=== PATIENT | male | born 1970 | race Caucasian/White ===

== ENCOUNTER 2016-05-31 00:17 | Emergency (ER) | payer OTHER ==
[2016-05-31 01:20] LABS: BASO % 0.3 % (0.0-1.0); EOS # 0.2 K/mm3 (0.0-0.50); EOS % 2.1 % (0.0-3.0); LARGE UNSTAINED CELL # 0.2 K/mm3 (0.0-0.4); LARGE UNSTAINED CELL % 2.6 % (0.0-4.0); LYMPH % 27.1 % (24.0-44.0); MEAN CORPUSCULAR HEMOGLOBIN 27.3 pg (27.0-33.0); MEAN CORPUSCULAR HGB CONC 32.4 g/dl (32.0-36.5); MEAN CORPUSCULAR VOLUME 84.4 fl (80.0-96.0); MONO # 0.4 K/mm3 (0.0-0.8); MONO % 5.7 % (0.0-5.0); NEUTROPHILS # 4.6 K/mm3 (1.8-7.7); NEUTROPHILS % 62.2 % (36.0-66.0); PLATELET COUNT, AUTOMATED 183 k/mm3 (150-450); RED CELL DISTRIBUTION WIDTH 14.6 % (11.5-14.5); WHITE BLOOD COUNT 7.4 K/mm3 (4.0-10.0)
[2016-05-31 02:04] LABS: ALBUMIN 4.2 GM/DL (3.2-5.2); ALBUMIN/GLOBULIN RATIO 1.27 (1.00-1.93); ALKALINE PHOSPHATASE 77 U/L (45-117); ALT/SGPT 31 U/L (12-78); AMYLASE 47 U/L (25-115); ANION GAP 9 MEQ/L (8-16); AST/SGOT 16 U/L (15-37); BILIRUBIN,DIRECT < 0.1 MG/DL (0.0-0.2); BILIRUBIN,TOTAL 0.2 MG/DL (0.2-1.0); BLOOD UREA NITROGEN 11 MG/DL (7-18); CALCIUM LEVEL 8.8 MG/DL (8.5-10.1); CARBON DIOXIDE LEVEL 27 MEQ/L (21-32); CHLORIDE LEVEL 105 MEQ/L (98-107); CREATININE FOR GFR 1.11 MG/DL (0.70-1.30); GLOMERULAR FILTRATION RATE > 60.0 (>60); GLUCOSE, FASTING 166 MG/DL (70-105); POTASSIUM SERUM 4.1 MEQ/L (3.5-5.1); SODIUM LEVEL 141 MEQ/L (136-145); TOTAL PROTEIN 7.5 GM/DL (6.4-8.2)
[2016-05-31] MEDS ORDERED: GASTROGRAFIN SOLUTION 30ML (Q9963) As Ordered ONE (02:07)
[2016-05-31] MEDS ORDERED: ISOVUE-370 76% 100ML VIAL (Q9967) As Ordered ONE (02:26)
[2016-05-31] MEDS ORDERED: DICYCLOMINE INJ 20MG/2ML (J0500) As Ordered ONE (02:35)
--- NOTE | 2016-05-31 03:11 | EDDOCDS ---
Nurse's Notes [facility] Name: Lul Morocho Age: 46 yrs Sex: Male : 1970 Arrival Date: 05/31/2016 Time: 00:17 Bed D1 Private MD: Diagnosis: Abdominal and pelvic pain Presentation: 05/31 00:45 Presenting complaint: Patient states: Severe lower abdominal pain bilaterally. Has a jo3 history of ulcerative colitis. does not think he saw blood in stool. Adult Sepsis Screening: The patient does not have new or worsening altered mentation. Patient's respiratory rate is less than 22. Systolic blood pressure is greater than 100. Patient has a qSOFA score of 0- Negative Sepsis Screen. Suicide/Homicide risk assessment- the patient denies having any suicidal and/or homicidal ideations and does not present with any other emotional, behavioral or mental health complaints. 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 Transition of care: patient was not received from another setting of care. 00:45 Acuity: PEMA Level 3 jo3 00:45 Method Of Arrival: Walkin/Carried/Asstd jo3 Triage Assessment: 00:47 General: Appears in no apparent distress, uncomfortable, well nourished, well groomed, jo3 Behavior is appropriate for age, cooperative. Pain: Pain currently is 9 out of 10 on a pain scale. HIV screening NA for this visit Offered previously. Neurological: Level of Consciousness is awake, alert, Oriented to person, place, time. Respiratory: Airway is patent Respiratory effort is even, unlabored. GI: Reports diarrhea, nausea, vomiting. Derm: Skin is pink, warm & dry. Historical: - Allergies: Aspirin; NSAIDS (Hives); - Home Meds: 1. none - PMHx: Ulcerative Colitis; - PSHx: Appendectomy; C6-7 spinal fusion; - Social history: Smoking status: Patient uses tobacco products, heavy tobacco smoker. No barriers to communication noted, The patient speaks fluent Italian, Speaks appropriately for age. - Family history: Not pertinent. - : The pt / caregiver states he / she is not on anticoagulants. Home medication list is obtained from the patient. - Exposure Risk Screening:: None identified. Screenin:30 Screening information is obtained from the patient. Fall risk: No risks identified. kmg1 Assistance ADL's: requires no assistance with activities of daily living. Abuse/DV Screen: The patient / caregiver reports he/she is: not in a situation that causes fear, pain or injury. Nutritional screening: No deficits noted. Advance Directives: There is no active DNR order. home support is adequate. Assessment: 01:14 General: Appears in no apparent distress, uncomfortable, Behavior is cooperative. Pain: slm Location: abdomen. Derm: Skin is pink, warm & dry. 02:10 General: Appears in no apparent distress, uncomfortable, Behavior is appropriate for km age, cooperative. Pain: Location: abdomen diffusely. GI: Bowel sounds present X 4 quads. Abd is soft X 4 quads Abd is tender to palpation X 4 quads. Reports lower abdominal pain, upper abdominal pain. 02:41 General: Appears in no apparent distress, Behavior is appropriate for age, cooperative, jmb Patient laying on stretcher, appears uncomfortable. watching television. NO voiced complaints at this time. . Neurological: Level of Consciousness is awake, alert, obeys commands, Oriented to person, place, time, Speech is normal. Respiratory: Airway is patent Respiratory effort is even, unlabored, Respiratory pattern is regular, symmetrical. 03:00 General: Patient removed his own IV and left the department. [facility] [place] Vital Signs: 00:47 BP 131 / 89; Pulse 94; Resp 20; Temp 98.1(O); Pulse Ox 99% ; Weight 81.65 kg; Height 5 jo3 ft. 5 in. (165.10 cm); Pain 9/10; 00:47 Body Mass Index 29.95 (81.65 kg, 165.10 cm) [facility] Vitals: 00:47 Log In Time: May 31, 2016 at 00:19. 3 ED Course: 00:18 Patient visited by Caridad Padilla Reg. hs2 00:18 Patient moved to Waiting hs2 00:46 Triage Initiated jo3 00:49 Patient visited by Eveline Bryant RN. jo3 01:04 Patient moved to I4 / kc3 01:13 Lipase Sent. mf4 01:13 Amylase Sent. mf4 01:13 Liver Profile Sent. mf4 01:13 MED Profile Sent. mf4 01:13 CBC with Diff Sent. mf4 01:14 Inserted saline lock: 20 gauge in right forearm and blood collected. The patient slm tolerated the procedure well. No procedures done that require assistance. 01:17 Patient moved to 8 lelia 01:55 Silverio Wei DO is Attending Physician. cs11 01:55 Patient visited by Silverio Wei DO. cs11 02:42 Patient visited by Dorian Tripp RN. b 02:46 Patient moved to D1 cz Administered Medications: 02:10 Drug: Diatrizoate Meglumine & Sodium 10 ml [diatrizoate meglumine and diat.sodium 66 kmg1 %-10 % oral solution (10 mL)] Route: PO; 02:41 Drug: NS 0.9% 1000 ml [sodium chloride 0.9 % intravenous solution] Route: IV; Rate: jmb bolus; Site: right forearm; 02:41 Drug: Bentyl 20 mg [Bentyl 10 mg/mL intramuscular solution (2 mL)] Route: IM; Site: b right vastus lateralis; Order Results: Lab Order: CBC with Diff; SPEC'M 05/31/16 01:08 Test: WHITE BLOOD COUNT; Value: 7.4; Range: 4.0-10.0; Units: K/mm3; Status: F Test: RED BLOOD COUNT; Value: 4.69; Range: 4.30-6.10; Units: M/mm3; Status: F Test: HEMOGLOBIN; Value: 12.8; Range: 14.0-18.0; Abnormal: Below low normal; Units: g/dl; Status: F Test: HEMATOCRIT; Value: 39.6; Range: 42.0-52.0; Abnormal: Below low normal; Units: %; Status: F Test: MEAN CORPUSCULAR VOLUME; Value: 84.4; Range: 80.0-96.0; Units: fl; Status: F Test: MEAN CORPUSCULAR HEMOGLOBIN; Value: 27.3; Range: 27.0-33.0; Units: pg; Status: F Test: MEAN CORPUSCULAR HGB CONC; Value: 32.4; Range: 32.0-36.5; Units: g/dl; Status: F Test: RED CELL DISTRIBUTION WIDTH; Value: 14.6; Range: 11.5-14.5; Abnormal: Above high normal; Units: %; Status: F Test: PLATELET COUNT, AUTOMATED; Value: 183; Range: 150-450; Units: k/mm3; Status: F Test: NEUTROPHILS %; Value: 62.2; Range: 36.0-66.0; Units: %; Status: F Test: LYMPH %; Value: 27.1; Range: 24.0-44.0; Units: %; Status: F Test: MONO %; Value: 5.7; Range: 0.0-5.0; Abnormal: Above high normal; Units: %; Status: F Test: EOS %; Value: 2.1; Range: 0.0-3.0; Units: %; Status: F Test: BASO %; Value: 0.3; Range: 0.0-1.0; Units: %; Status: F Test: LARGE UNSTAINED CELL %; Value: 2.6; Range: 0.0-4.0; Units: %; Status: F Test: NEUTROPHILS #; Value: 4.6; Range: 1.8-7.7; Units: K/mm3; Status: F Test: LYMPH #; Value: 2.0; Range: 1.5-4.5; Units: K/mm3; Status: F Test: MONO #; Value: 0.4; Range: 0.0-0.8; Units: K/mm3; Status: F Test: EOS #; Value: 0.2; Range: 0.0-0.50; Units: K/mm3; Status: F Test: BASO #; Value: 0.0; Range: 0.0-0.2; Units: K/mm3; Status: F Test: LARGE UNSTAINED CELL #; Value: 0.2; Range: 0.0-0.4; Units: K/mm3; Status: F Lab Order: MED Profile; SPEC'M 05/31/16 01:08 Test: GLUCOSE, FASTING; Value: 166; Range: 70-105; Abnormal: Above high normal; Units: MG/DL; Status: F Test: BLOOD UREA NITROGEN; Value: 11; Range: 7-18; Units: MG/DL; Status: F Test: CREATININE FOR GFR; Value: 1.11; Range: 0.70-1.30; Units: MG/DL; Status: F Test: GLOMERULAR FILTRATION RATE; Value: > 60.0; Range: >60; Status: F Test: SODIUM LEVEL; Value: 141; Range: 136-145; Units: MEQ/L; Status: F Test: POTASSIUM SERUM; Value: 4.1; Range: 3.5-5.1; Units: MEQ/L; Status: F Test: CHLORIDE LEVEL; Value: 105; Range: 98-107; Units: MEQ/L; Status: F Test: CARBON DIOXIDE LEVEL; Value: 27; Range: 21-32; Units: MEQ/L; Status: F Test: ANION GAP; Value: 9; Range: 8-16; Units: MEQ/L; Status: F Test: CALCIUM LEVEL; Value: 8.8; Range: 8.5-10.1; Units: MG/DL; Status: F Test Note: ; Units are mL/min/1.73 m2 Chronic Kidney Disease Staging per NKF: Stage I & II GFR >=60 Normal to Mildly Decreased Stage III GFR 30-59 Moderately Decreased Stage IV GFR 15-29 Severely Decreased Stage V GFR <15 Very Little GFR Left ESRD GFR <15 on CAMPUS MONITOR Lab Order: Liver Profile; SPEC'M 05/31/16 01:08 Test: AST/SGOT; Value: 16; Range: 15-37; Units: U/L; Status: F Test: ALT/SGPT; Value: 31; Range: 12-78; Units: U/L; Status: F Test: ALKALINE PHOSPHATASE; Value: 77; Range: 45-117; Units: U/L; Status: F Test: BILIRUBIN,TOTAL; Value: 0.2; Range: 0.2-1.0; Units: MG/DL; Status: F Test: BILIRUBIN,DIRECT; Value: < 0.1; Range: 0.0-0.2; Units: MG/DL; Status: F Test: TOTAL PROTEIN; Value: 7.5; Range: 6.4-8.2; Units: GM/DL; Status: F Test: ALBUMIN; Value: 4.2; Range: 3.2-5.2; Units: GM/DL; Status: F Test: ALBUMIN/GLOBULIN RATIO; Value: 1.27; Range: 1.00-1.93; Status: F Lab Order: Amylase; SPEC'05/31/16 01:08 Test: AMYLASE; Value: 47; Range: 25-115; Units: U/L; Status: F Lab Order: Lipase; SPEC'M 05/31/16 01:08 Test: LIPASE; Value: 95; Range: 73-393; Units: U/L; Status: F Outcome: 02:50 Patient left against medical advice. cs11 03:07 Discharge Assessment: Patient awake, alert and oriented x 3. No cognitive and/or [facility] [place] functional deficits noted. Patient verbalized understanding of disposition instructions. Patient awake and alert. Discharge Assessment: patient administered narcotics - no. The following High Risk Discharge criteria are identified: Yes, Eloped. Eloped after seeing physician Time discovered patient gone: May 31, 2016. Condition: unchanged. No special radiology studies were completed. Property sent home with patient. 03:09 Patient left the ED. [facility] [place] Signatures: Ifeoma Ridley, RN RN kmg1 Augustine Miles, RN Eveline ClementRN RN jo3 Sheree Luna, RESEARCH ASSISTANT PROFESSOR RESEARCH ASSISTANT PROFESSOR Shlomo Perez,BURR BENCH OPERATOR BURR BENCH OPERATOR mf4 Silverio Wei, DO cs11 Dorian Tripp,RN Dorys Trevizo,Ashley Mcknight LPN, RN RN [email or web address] Caridad Padilla, Reg Reg hs2 MTDD
--- NOTE | 2016-05-31 03:11 | EDDOCDS ---
Physician Documentation [facility] Name: Lul Morocho Age: 46 yrs Sex: Male : 1970 Arrival Date: 05/31/2016 Time: 00:17 Bed D1 Private MD: Disposition: 05/31/16 02:50 Patient has left against medical advice. Impression: Abdominal and pelvic pain. - Patients states they are going to Home/Self Care. - Condition is Satisfactory. Medication Reconciliation, Local Pharmacy Hours form. Follow up: Private Physician; When: Call to arrange an appointment; Reason: Recheck today's complaints. - Problem is an ongoing problem. - Symptoms are unchanged. Historical: - Allergies: Aspirin; NSAIDS (Hives); - Home Meds: 1. none - PMHx: Ulcerative Colitis; - PSHx: Appendectomy; C6-7 spinal fusion; - Social history: Smoking status: Patient uses tobacco products, heavy tobacco smoker. No barriers to communication noted, The patient speaks fluent Greek, Speaks appropriately for age. - Family history: Not pertinent. - : The pt / caregiver states he / she is not on anticoagulants. Home medication list is obtained from the patient. - Exposure Risk Screening:: None identified. Vital Signs: 05/31 00:47 BP 131 / 89; Pulse 94; Resp 20; Temp 98.1(O); Pulse Ox 99% ; Weight 81.65 kg / 180.01 jo3 lbs; Height 5 ft. 5 in. (165.10 cm); Pain 9/10; 00:47 Body Mass Index 29.95 (81.65 kg, 165.10 cm) jo3 MDM: 00:55 CBC with Diff Ordered. EDMS 00:55 MED Profile Ordered. EDMS 00:55 Liver Profile Ordered. EDMS 00:56 Amylase Ordered. EDMS 00:56 Lipase Ordered. EDMS 02:00 CBC with Diff Reviewed. cs11 02:01 IV Saline Lock ordered. cs11 02:01 NS 0.9% 1000 ml IV at bolus once ordered. cs11 02:02 Bentyl 20 mg IM once ordered. cs11 02:02 CT ABD & PELVIS: IV and Oral Contrast Ordered. EDMS 02:45 Financial registration complete. hs2 02:49 MED Profile Reviewed. cs11 02:49 Liver Profile Reviewed. cs11 02:49 Amylase Reviewed. cs11 02:49 Lipase Reviewed. cs11 02:56 Diatrizoate Meglumine & Sodium Liquid 10 ml PO bolus; mix in 290cc of water x2 ordered. kmg1 Administered Medications: 02:10 Drug: Diatrizoate Meglumine & Sodium 10 ml [diatrizoate meglumine and diat.sodium 66 kmg1 %-10 % oral solution (10 mL)] Route: PO; 02:41 Drug: NS 0.9% 1000 ml [sodium chloride 0.9 % intravenous solution] Route: IV; Rate: jmb bolus; Site: right forearm; 02:41 Drug: Bentyl 20 mg [Bentyl 10 mg/mL intramuscular solution (2 mL)] Route: IM; Site: jmb right vastus lateralis; Signatures: Dispatcher [employer] EDIfeoma Qiuroz RN RN kmg1 Eveline BryantRN RN jo3 Silverio Wei DO DO cs11 Caridad Padilla, Reg Reg hs2 Dorian Tripp RN MTDD
--- NOTE | 2016-06-02 04:11 | EDDOCDS ---
Physician Documentation [facility] Name: Lul Morocho Age: 46 yrs Sex: Male : 1970 Arrival Date: 05/31/2016 Time: 00:17 Bed D1 Private MD: Disposition: 05/31/16 02:50 Patient has left against medical advice. Impression: Abdominal and pelvic pain. - Patients states they are going to Home/Self Care. - Condition is Satisfactory. Medication Reconciliation, Local Pharmacy Hours form. Follow up: Private Physician; When: Call to arrange an appointment; Reason: Recheck today's complaints. - Problem is an ongoing problem. - Symptoms are unchanged. Historical: - Allergies: Aspirin; NSAIDS (Hives); - Home Meds: 1. none - PMHx: Ulcerative Colitis; - PSHx: Appendectomy; C6-7 spinal fusion; - Social history: Smoking status: Patient uses tobacco products, heavy tobacco smoker. No barriers to communication noted, The patient speaks fluent Lao, Speaks appropriately for age. - Family history: Not pertinent. - : The pt / caregiver states he / she is not on anticoagulants. Home medication list is obtained from the patient. - Exposure Risk Screening:: None identified. Vital Signs: 05/31 00:47 BP 131 / 89; Pulse 94; Resp 20; Temp 98.1(O); Pulse Ox 99% ; Weight 81.65 kg / 180.01 jo3 lbs; Height 5 ft. 5 in. (165.10 cm); Pain 9/10; 00:47 Body Mass Index 29.95 (81.65 kg, 165.10 cm) jo3 MDM: 00:55 CBC with Diff Ordered. EDMS 00:55 MED Profile Ordered. EDMS 00:55 Liver Profile Ordered. EDMS 00:56 Amylase Ordered. EDMS 00:56 Lipase Ordered. EDMS 02:00 CBC with Diff Reviewed. cs11 02:01 IV Saline Lock ordered. cs11 02:01 NS 0.9% 1000 ml IV at bolus once ordered. cs11 02:02 Bentyl 20 mg IM once ordered. cs11 02:02 CT ABD & PELVIS: IV and Oral Contrast Ordered. EDMS 02:45 Financial registration complete. hs2 02:49 MED Profile Reviewed. cs11 02:49 Liver Profile Reviewed. cs11 02:49 Amylase Reviewed. cs11 02:49 Lipase Reviewed. cs11 02:56 Diatrizoate Meglumine & Sodium Liquid 10 ml PO bolus; mix in 290cc of water x2 ordered. kmg1 03:50 [facility] Payment Agreement was scanned into [employer] and attached to record. hs2 Administered Medications: 02:10 Drug: Diatrizoate Meglumine & Sodium 10 ml [diatrizoate meglumine and diat.sodium 66 kmg1 %-10 % oral solution (10 mL)] Route: PO; 02:41 Drug: NS 0.9% 1000 ml [sodium chloride 0.9 % intravenous solution] Route: IV; Rate: jmb bolus; Site: right forearm; 02:41 Drug: Bentyl 20 mg [Bentyl 10 mg/mL intramuscular solution (2 mL)] Route: IM; Site: jmb right vastus lateralis; Signatures: Dispatcher [employer] EDMS Ifeoma Ridley RN RN kmg1 Eveline Bryant RN RN jo3 Silverio Wei, DO cs11 Caridad Padilla, Reg Reg hs2 Dorian Tripp RN The chart was reviewed and I authenticate all verbal orders and agree with the evaluation and treatment provided.Attachments: 03:50 [facility] Payment Agreement hs2 Chart Complete MTDD
--- NOTE | 2016-06-02 04:11 | EDDOCDS ---
Physician Documentation [facility] Name: Lul Morocho Age: 46 yrs Sex: Male : 1970 Arrival Date: 05/31/2016 Time: 00:17 Bed D1 Private MD: Disposition: 05/31/16 02:50 Patient has left against medical advice. Impression: Abdominal and pelvic pain. - Patients states they are going to Home/Self Care. - Condition is Satisfactory. Medication Reconciliation, Local Pharmacy Hours form. Follow up: Private Physician; When: Call to arrange an appointment; Reason: Recheck today's complaints. - Problem is an ongoing problem. - Symptoms are unchanged. Historical: - Allergies: Aspirin; NSAIDS (Hives); - Home Meds: 1. none - PMHx: Ulcerative Colitis; - PSHx: Appendectomy; C6-7 spinal fusion; - Social history: Smoking status: Patient uses tobacco products, heavy tobacco smoker. No barriers to communication noted, The patient speaks fluent Hungarian, Speaks appropriately for age. - Family history: Not pertinent. - : The pt / caregiver states he / she is not on anticoagulants. Home medication list is obtained from the patient. - Exposure Risk Screening:: None identified. Vital Signs: 05/31 00:47 BP 131 / 89; Pulse 94; Resp 20; Temp 98.1(O); Pulse Ox 99% ; Weight 81.65 kg / 180.01 jo3 lbs; Height 5 ft. 5 in. (165.10 cm); Pain 9/10; 00:47 Body Mass Index 29.95 (81.65 kg, 165.10 cm) jo3 MDM: 00:55 CBC with Diff Ordered. EDMS 00:55 MED Profile Ordered. EDMS 00:55 Liver Profile Ordered. EDMS 00:56 Amylase Ordered. EDMS 00:56 Lipase Ordered. EDMS 02:00 CBC with Diff Reviewed. cs11 02:01 IV Saline Lock ordered. cs11 02:01 NS 0.9% 1000 ml IV at bolus once ordered. cs11 02:02 Bentyl 20 mg IM once ordered. cs11 02:02 CT ABD & PELVIS: IV and Oral Contrast Ordered. EDMS 02:45 Financial registration complete. hs2 02:49 MED Profile Reviewed. cs11 02:49 Liver Profile Reviewed. cs11 02:49 Amylase Reviewed. cs11 02:49 Lipase Reviewed. cs11 02:56 Diatrizoate Meglumine & Sodium Liquid 10 ml PO bolus; mix in 290cc of water x2 ordered. kmg1 03:50 [facility] Payment Agreement was scanned into [employer] and attached to record. hs2 Administered Medications: 02:10 Drug: Diatrizoate Meglumine & Sodium 10 ml [diatrizoate meglumine and diat.sodium 66 kmg1 %-10 % oral solution (10 mL)] Route: PO; 02:41 Drug: NS 0.9% 1000 ml [sodium chloride 0.9 % intravenous solution] Route: IV; Rate: jmb bolus; Site: right forearm; 02:41 Drug: Bentyl 20 mg [Bentyl 10 mg/mL intramuscular solution (2 mL)] Route: IM; Site: jmb right vastus lateralis; Signatures: Dispatcher [employer] EDMS Ifeoma Ridley RN RN kmg1 Eveline Bryant RN RN jo3 Silverio Wei, DO cs11 Caridad Padilla, Reg Reg hs2 Dorian Tripp RN The chart was reviewed and I authenticate all verbal orders and agree with the evaluation and treatment provided.Attachments: 03:50 [facility] Payment Agreement hs2 Chart Complete MTDD
--- NOTE | 2016-06-02 04:11 | EDDOCDS ---
Nurse's Notes [facility] Name: Lul Morocho Age: 46 yrs Sex: Male : 1970 Arrival Date: 05/31/2016 Time: 00:17 Bed D1 Private MD: Diagnosis: Abdominal and pelvic pain Presentation: 05/31 00:45 Presenting complaint: Patient states: Severe lower abdominal pain bilaterally. Has a jo3 history of ulcerative colitis. does not think he saw blood in stool. Adult Sepsis Screening: The patient does not have new or worsening altered mentation. Patient's respiratory rate is less than 22. Systolic blood pressure is greater than 100. Patient has a qSOFA score of 0- Negative Sepsis Screen. Suicide/Homicide risk assessment- the patient denies having any suicidal and/or homicidal ideations and does not present with any other emotional, behavioral or mental health complaints. 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 Transition of care: patient was not received from another setting of care. 00:45 Acuity: PEMA Level 3 jo3 00:45 Method Of Arrival: Walkin/Carried/Asstd jo3 Triage Assessment: 00:47 General: Appears in no apparent distress, uncomfortable, well nourished, well groomed, jo3 Behavior is appropriate for age, cooperative. Pain: Pain currently is 9 out of 10 on a pain scale. HIV screening NA for this visit Offered previously. Neurological: Level of Consciousness is awake, alert, Oriented to person, place, time. Respiratory: Airway is patent Respiratory effort is even, unlabored. GI: Reports diarrhea, nausea, vomiting. Derm: Skin is pink, warm & dry. Historical: - Allergies: Aspirin; NSAIDS (Hives); - Home Meds: 1. none - PMHx: Ulcerative Colitis; - PSHx: Appendectomy; C6-7 spinal fusion; - Social history: Smoking status: Patient uses tobacco products, heavy tobacco smoker. No barriers to communication noted, The patient speaks fluent Turkish, Speaks appropriately for age. - Family history: Not pertinent. - : The pt / caregiver states he / she is not on anticoagulants. Home medication list is obtained from the patient. - Exposure Risk Screening:: None identified. Screenin:30 Screening information is obtained from the patient. Fall risk: No risks identified. kmg1 Assistance ADL's: requires no assistance with activities of daily living. Abuse/DV Screen: The patient / caregiver reports he/she is: not in a situation that causes fear, pain or injury. Nutritional screening: No deficits noted. Advance Directives: There is no active DNR order. home support is adequate. Assessment: 01:14 General: Appears in no apparent distress, uncomfortable, Behavior is cooperative. Pain: slm Location: abdomen. Derm: Skin is pink, warm & dry. 02:10 General: Appears in no apparent distress, uncomfortable, Behavior is appropriate for km age, cooperative. Pain: Location: abdomen diffusely. GI: Bowel sounds present X 4 quads. Abd is soft X 4 quads Abd is tender to palpation X 4 quads. Reports lower abdominal pain, upper abdominal pain. 02:41 General: Appears in no apparent distress, Behavior is appropriate for age, cooperative, jmb Patient laying on stretcher, appears uncomfortable. watching television. NO voiced complaints at this time. . Neurological: Level of Consciousness is awake, alert, obeys commands, Oriented to person, place, time, Speech is normal. Respiratory: Airway is patent Respiratory effort is even, unlabored, Respiratory pattern is regular, symmetrical. 03:00 General: Patient removed his own IV and left the department. [facility] [place] Vital Signs: 00:47 BP 131 / 89; Pulse 94; Resp 20; Temp 98.1(O); Pulse Ox 99% ; Weight 81.65 kg; Height 5 jo3 ft. 5 in. (165.10 cm); Pain 9/10; 00:47 Body Mass Index 29.95 (81.65 kg, 165.10 cm) [facility] Vitals: 00:47 Log In Time: May 31, 2016 at 00:19. 3 ED Course: 00:18 Patient visited by Caridad Padilla Reg. hs2 00:18 Patient moved to Waiting hs2 00:46 Triage Initiated jo3 00:49 Patient visited by Eveline Bryant RN. jo3 01:04 Patient moved to I4 / kc3 01:13 Lipase Sent. mf4 01:13 Amylase Sent. mf4 01:13 Liver Profile Sent. mf4 01:13 MED Profile Sent. mf4 01:13 CBC with Diff Sent. mf4 01:14 Inserted saline lock: 20 gauge in right forearm and blood collected. The patient slm tolerated the procedure well. No procedures done that require assistance. 01:17 Patient moved to 8 lelia 01:55 Silverio Wei DO is Attending Physician. cs11 01:55 Patient visited by Silverio Wei DO. cs11 02:42 Patient visited by Dorian Tripp RN. jmb 02:46 Patient moved to D1 cz 03:50 [facility] Payment Agreement was scanned into [employer] and attached to record. hs2 Administered Medications: 02:10 Drug: Diatrizoate Meglumine & Sodium 10 ml [diatrizoate meglumine and diat.sodium 66 kmg1 %-10 % oral solution (10 mL)] Route: PO; 02:41 Drug: NS 0.9% 1000 ml [sodium chloride 0.9 % intravenous solution] Route: IV; Rate: jmb bolus; Site: right forearm; 02:41 Drug: Bentyl 20 mg [Bentyl 10 mg/mL intramuscular solution (2 mL)] Route: IM; Site: b right vastus lateralis; Order Results: Lab Order: CBC with Diff; SPEC'M 05/31/16 01:08 Test: WHITE BLOOD COUNT; Value: 7.4; Range: 4.0-10.0; Units: K/mm3; Status: F Test: RED BLOOD COUNT; Value: 4.69; Range: 4.30-6.10; Units: M/mm3; Status: F Test: HEMOGLOBIN; Value: 12.8; Range: 14.0-18.0; Abnormal: Below low normal; Units: g/dl; Status: F Test: HEMATOCRIT; Value: 39.6; Range: 42.0-52.0; Abnormal: Below low normal; Units: %; Status: F Test: MEAN CORPUSCULAR VOLUME; Value: 84.4; Range: 80.0-96.0; Units: fl; Status: F Test: MEAN CORPUSCULAR HEMOGLOBIN; Value: 27.3; Range: 27.0-33.0; Units: pg; Status: F Test: MEAN CORPUSCULAR HGB CONC; Value: 32.4; Range: 32.0-36.5; Units: g/dl; Status: F Test: RED CELL DISTRIBUTION WIDTH; Value: 14.6; Range: 11.5-14.5; Abnormal: Above high normal; Units: %; Status: F Test: PLATELET COUNT, AUTOMATED; Value: 183; Range: 150-450; Units: k/mm3; Status: F Test: NEUTROPHILS %; Value: 62.2; Range: 36.0-66.0; Units: %; Status: F Test: LYMPH %; Value: 27.1; Range: 24.0-44.0; Units: %; Status: F Test: MONO %; Value: 5.7; Range: 0.0-5.0; Abnormal: Above high normal; Units: %; Status: F Test: EOS %; Value: 2.1; Range: 0.0-3.0; Units: %; Status: F Test: BASO %; Value: 0.3; Range: 0.0-1.0; Units: %; Status: F Test: LARGE UNSTAINED CELL %; Value: 2.6; Range: 0.0-4.0; Units: %; Status: F Test: NEUTROPHILS #; Value: 4.6; Range: 1.8-7.7; Units: K/mm3; Status: F Test: LYMPH #; Value: 2.0; Range: 1.5-4.5; Units: K/mm3; Status: F Test: MONO #; Value: 0.4; Range: 0.0-0.8; Units: K/mm3; Status: F Test: EOS #; Value: 0.2; Range: 0.0-0.50; Units: K/mm3; Status: F Test: BASO #; Value: 0.0; Range: 0.0-0.2; Units: K/mm3; Status: F Test: LARGE UNSTAINED CELL #; Value: 0.2; Range: 0.0-0.4; Units: K/mm3; Status: F Lab Order: MED Profile; SPEC'M 05/31/16 01:08 Test: GLUCOSE, FASTING; Value: 166; Range: 70-105; Abnormal: Above high normal; Units: MG/DL; Status: F Test: BLOOD UREA NITROGEN; Value: 11; Range: 7-18; Units: MG/DL; Status: F Test: CREATININE FOR GFR; Value: 1.11; Range: 0.70-1.30; Units: MG/DL; Status: F Test: GLOMERULAR FILTRATION RATE; Value: > 60.0; Range: >60; Status: F Test: SODIUM LEVEL; Value: 141; Range: 136-145; Units: MEQ/L; Status: F Test: POTASSIUM SERUM; Value: 4.1; Range: 3.5-5.1; Units: MEQ/L; Status: F Test: CHLORIDE LEVEL; Value: 105; Range: 98-107; Units: MEQ/L; Status: F Test: CARBON DIOXIDE LEVEL; Value: 27; Range: 21-32; Units: MEQ/L; Status: F Test: ANION GAP; Value: 9; Range: 8-16; Units: MEQ/L; Status: F Test: CALCIUM LEVEL; Value: 8.8; Range: 8.5-10.1; Units: MG/DL; Status: F Test Note: ; Units are mL/min/1.73 m2 Chronic Kidney Disease Staging per NKF: Stage I & II GFR >=60 Normal to Mildly Decreased Stage III GFR 30-59 Moderately Decreased Stage IV GFR 15-29 Severely Decreased Stage V GFR <15 Very Little GFR Left ESRD GFR <15 on VP DELIVERY Lab Order: Liver Profile; SPEC'M 05/31/16 01:08 Test: AST/SGOT; Value: 16; Range: 15-37; Units: U/L; Status: F Test: ALT/SGPT; Value: 31; Range: 12-78; Units: U/L; Status: F Test: ALKALINE PHOSPHATASE; Value: 77; Range: 45-117; Units: U/L; Status: F Test: BILIRUBIN,TOTAL; Value: 0.2; Range: 0.2-1.0; Units: MG/DL; Status: F Test: BILIRUBIN,DIRECT; Value: < 0.1; Range: 0.0-0.2; Units: MG/DL; Status: F Test: TOTAL PROTEIN; Value: 7.5; Range: 6.4-8.2; Units: GM/DL; Status: F Test: ALBUMIN; Value: 4.2; Range: 3.2-5.2; Units: GM/DL; Status: F Test: ALBUMIN/GLOBULIN RATIO; Value: 1.27; Range: 1.00-1.93; Status: F Lab Order: Amylase; SPEC'M 05/31/16 01:08 Test: AMYLASE; Value: 47; Range: 25-115; Units: U/L; Status: F Lab Order: Lipase; SPEC'M 05/31/16 01:08 Test: LIPASE; Value: 95; Range: 73-393; Units: U/L; Status: F Outcome: 02:50 Patient left against medical advice. cs11 03:07 Discharge Assessment: Patient awake, alert and oriented x 3. No cognitive and/or [facility] [place] functional deficits noted. Patient verbalized understanding of disposition instructions. Patient awake and alert. Discharge Assessment: patient administered narcotics - no. The following High Risk Discharge criteria are identified: Yes, Eloped. Eloped after seeing physician Time discovered patient gone: May 31, 2016. Condition: unchanged. No special radiology studies were completed. Property sent home with patient. 03:09 Patient left the ED. [facility] [place] Signatures: Ifeoma Ridley RN JEWELL kmg1 Augustine Miles RN Eveline ClementRN RN jo3 Sheree Luna, FURNACE TENDER FURNACE TENDER Shlomo Perez,RESEARCH CENTER PARTNER RESEARCH CENTER PARTNER 4 Silverio Wei, DO cs11 Dorian TrippRN Dorys Trevizo,Ashley Mcknight LPNRN RN kc3 Caridad Padilla, Reg Reg hs2 Chart Complete MTDD
== END 2016-06-01 03:09 | disposition left against medical advice (07) ==
LOC: M ED 00:17
DX: R10.9 Unspecified abdominal pain (principal); K51.90 Ulcerative colitis, unspecified, without complications; F17.210 Nicotine dependence, cigarettes, uncomplicated; Z88.6 Allergy status to analgesic agent